=== PATIENT | male | born 1980 | race Caucasian/White ===

== ENCOUNTER 2018-05-31 23:03 | Emergency (ER) | payer BC ==
[2018-05-31 23:18] VITALS: BP 127/71; PULSE 87; TEMP 98.1; BMI 25.8
--- NOTE | 2018-06-01 00:11 | PDOC ---
History of Present Illness - General Chief Complaint: Allergic Reaction Stated Complaint: ALLERGIC REACTION Time Seen by Provider: 06/01/18 00:11 - History of Present Illness Initial Comments: 06/01/18 00:40 The patient is a 38 year old male with no significant PMH who presents for evaluation of a possible allergic reaction. The patient reports that he accidentally used a soap that his skin as reacted to in the past on his eyes earlier this morning and has been experiencing eye swelling and itching since that time despite uses of cold compresses prompting his presentation to the ED for further evaluation. He otherwise denies vision changes, headache, difficulty breathing, throat or tongue swelling, SOB, chest pain, nausea, vomiting, abdominal pain, or changes with urination or bowel movements. Past History - Suicide/Smoking/Psychosocial Hx Smoking History: Never smoked Have you smoked in the past 12 months: No Information on smoking cessation initiated: No Hx Alcohol Use: No Drug/Substance Use Hx: No Review of Systems - Review of Systems Comments:: 06/01/18 00:42 Constitutional: No fevers, chills, fatigue, malaise HEENT: Eye swelling and itching. No Rhinorrhea, nasal congestion, visual changes Cardiovascular: No chest pain, syncope, palpitations, lightheadedness Respiratory: No Cough, SOB, Hemoptysis, Gastrointestinal: No Abdominal pain, Nausea, Vomiting, Constipation, Diarrhea, Melena Genitourinary: No Dysuria, Frequency, Urgency, Hesitancy, Hematuria, Flank pain Musculoskeletal: No Myalgia, arthralgia Skin: No bruising, pallor Neurologic: No Headache, Dizziness, Numbness, Weakness, or Tingling Psychiatric: No Hallucinations. No SI or HI *Physical Exam - Vital Signs Last Vital Signs Temp Pulse Resp BP Pulse Ox 98.1 F 87 18 127/71 98 05/31/18 23:11 05/31/18 23:11 05/31/18 23:11 05/31/18 23:11 05/31/18 23:11 - Physical Exam Comments: 06/01/18 00:42 General Appearance: Nourished. No Apparent Distress HEENT: EOMI, ANDRE. Erythema, edema noted around the eyes bilaterally. No Pharyngeal Erythema, Tonsillar Exudate, Tonsillar Erythema Neck: No Cervical Lymphadenopathy Respiratory/Chest: Lungs Clear, Normal Breath Sounds. No Crackles, Rales, Rhonchi, Wheezing Cardiovascular: Regular Rhythm, Regular Rate. No Murmur, Gallops, Rubs Gastrointestinal/Abdominal: Normal Bowel Sounds, Soft. No Guarding, Rebound, Tenderness Musculoskeletal: No CVA Tenderness Extremity: Normal Capillary Refill Integumentary: Normal Color, Dry, Warm Neurologic: Fully Oriented, Alert, Normal Mood/Affect, Normal Response, Moderate Sedation - Procedure Monitoring Vital Signs: Procedure Monitoring Vital Signs Temperature 98.1 F 05/31/18 23:11 Pulse Rate 87 05/31/18 23:11 Respiratory Rate 18 05/31/18 23:11 Blood Pressure 127/71 05/31/18 23:11 O2 Sat by Pulse Oximetry (%) 98 05/31/18 23:11 Medical Decision Making - Medical Decision Making 06/01/18 00:43 The patient is a 38 year old male with no significant PMH who presents for evaluation of a possible allergic reaction. Given the patient's history and physical exam, it is likely the patient reacted to the soap he used earlier today. Given his symptoms, he is not experiencing an anaphylaxis reaction. We will treat with benadryl here in the ED. We are comfortable discharging the patient home with primary care provider follow up. We discussed the plan and return precautions with the patient who voiced understanding and is agreeable with the plan. *DC/Admit/Observation/Transfer Diagnosis at time of Disposition: Allergic reaction Qualifiers: Encounter type: initial encounter Qualified Code(s): T78.40XA - Allergy, unspecified, initial encounter - Discharge Dispostion Disposition: HOME Condition at time of disposition: Stable Decision to Admit order: No - Referrals - Patient Instructions Printed Discharge Instructions: DI for Eye Allergic Reaction Additional Instructions: Please return to the ER if you experience concerning or worsening symptoms including worsening difficulty breathing, weakness, or chest pain. You may continue to use benadryl at home to help relieve your symptoms. Please call to schedule a follow up appointment with your primary care provider within 2-3 days to discuss your ER visit and further management of your symptoms. - Post Discharge Activity
[2018-06-01] MEDS ORDERED: diphenhydrAMINE HCL 25 MG CAPSULE (FP) PO ONE ×2 (00:20→00:24)
--- NOTE | 2018-06-01 00:42 | PDOC ---
Attending Attestation - Resident Resident Name: Jose Valdez - ED Attending Attestation I have performed the following: I have examined & evaluated the patient, The case was reviewed & discussed with the resident, I agree w/resident's findings & plan, Exceptions are as noted - HPI HPI: 06/01/18 00:40 Accidentally applied a cream to his face that is known to irritate his skin. The expected redness, irritation occurred. Pt washed the area vigorously and has been applying warm, wet compresses through the day w/o effect. No sob, tongue swelling or irritation anywhere that was not in contact with the cream - Physicial Exam PE: 06/01/18 00:41 Agree with exam as documented by resident - Medical Decision Making 06/01/18 00:41 Direct contact reaction to known irritant Benadryl, re-eval Likely dc 06/01/18 01:23 Improvement of complaint after benadryl DC home
== END 2018-06-01 01:02 | disposition home or self-care (01) ==
LOC: JER 23:03
DX: L29.8 Other pruritus (principal); T78.40XA Allergy, unspecified, initial encounter
CPT/HCPCS: 99282-25